=== PATIENT | female | born 1960 | race African-American/Black ===

== ENCOUNTER → 2017-03-08 | Outpatient (CLI) | payer OTHER ==
[~2017-03-08] MED LIST: AMOX500T PO; BLOOKIT19; GLUCOMTESTSTRIPS XX; GLUCTAB PO; INSU1MIS86; NOVO7030P2 SQ; PRIN5TAB PO; [UNRECOGNIZED DRUG - CODE] TOP
[2017-03-08 07:43] LABS: BICARBONATE 28.8 MEQ/L (21.0-32.0); POTASSIUM 3.7 MEQ/L (3.5-5.1)
[2017-03-08 07:48] LABS: MICRO ALBUMIN RANDOM URINE RAW 11.2 MG/L (0.0-30.0)
[2017-03-08 07:54] LABS: FREE T3 2.83 PG/ML (2.18-3.98); FREE T4 0.93 NG/DL (0.76-1.46); HDL CHOLESTEROL 43.9 MG/DL (40.0-60.0)
[2017-03-10 23:55] LABS: THYROGLOB ABS 107 IU/mL (< OR = 1)
== END ==
LOC: CLAB 06:51
PROVIDERS: ATTEND Internal Medicine Endocrinology, Diabetes & Metabolism
DX: E11.65 Type 2 diabetes mellitus with hyperglycemia (principal); E78.5 Hyperlipidemia, unspecified; E04.9 Nontoxic goiter, unspecified; I10 Essential (primary) hypertension
CPT/HCPCS: 36415; 80048; 80061; 82043; 84439; 84443; 84481; 86376; 86800